=== PATIENT | male | born 1990 | race Caucasian/White ===

== ENCOUNTER → 2017-07-16 | Outpatient (CLI) | payer OTHER | LOC: FIMAGING 18:43 | PROVIDERS: ATTEND Internal Medicine | DX: R51 Headache (principal) ==

== ENCOUNTER → 2017-12-07 | Outpatient (CLI) | payer OTHER ==
[~2017-12-07] MED LIST: GADOBUTROL 10 ML VIAL IVP ONE
== END ==
LOC: FIMAGING 11:48
PROVIDERS: ATTEND Psychiatry & Neurology Neurology
DX: J34.1 Cyst and mucocele of nose and nasal sinus (principal)
CPT/HCPCS: A9585